=== PATIENT | male | born 1990 | race Caucasian/White ===

== ENCOUNTER 2017-07-02 22:55 | Emergency (ER) | payer SELFPAY ==
[~2017-07-02] VITALS: Ht 180.3 cm; Wt 61.2 kg
--- NOTE | 2017-07-02 23:00 | NUR ---
27 yo male bb ra, PT states he was shopping when he started to shake uncontrollably, called 911 for eval. EMS EKG shows sinus tach. skin warm and dry, resp even and unlabored. noted shaking all extremities. patient has full range of motion all extremities, no deficit noted, face is symetrical. 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 will continue to monitor, awaiting orders from provider
--- NOTE | 2017-07-02 23:06 | NUR ---
EMT at bed side for BG; 66. notified
--- NOTE | 2017-07-02 23:10 | NUR ---
gave patient juice and apple sauce
--- NOTE | 2017-07-02 23:36 | NUR ---
rechecked Carmela GOLDBERG MD notified
--- NOTE | 2017-07-03 00:16 | NUR ---
patient shaking has stopped. patient states he feels better and wants to go home. notified
--- NOTE | 2017-07-03 00:45 | NUR ---
patient is resting in er bed, no distress noted
[2017-07-03 01:30] VITALS: BP 118/68
--- NOTE | 2017-07-03 01:31 | NUR ---
patient left without DC instructions
== END 2017-07-03 01:32 | disposition home or self-care (01) ==
LOC: ER 22:57
DX: Z53.21 Procedure and treatment not carried out due to patient leaving prior to being seen by health care provider (principal)
CPT/HCPCS: 82962 ×2; A4606; Z7610